=== PATIENT | male | born 2000 | race African-American/Black ===

== ENCOUNTER 2019-06-26 15:28 | Emergency (ER) | payer OTHER | END 2019-06-26 16:39 | disposition home or self-care (01) | LOC: FTE 16:39 | DX: S60.861A Insect bite (nonvenomous) of right wrist, initial encounter (principal); S80.861A Insect bite (nonvenomous), right lower leg, initial encounter; S20.469A Insect bite (nonvenomous) of unspecified back wall of thorax, initial encounter; L29.9 Pruritus, unspecified; W57.XXXA Bitten or stung by nonvenomous insect and other nonvenomous arthropods, initial encounter; Y92.9 Unspecified place or not applicable | CPT/HCPCS: 99283 ==